=== PATIENT | female | born 1945 | race Two or more races ===

== ENCOUNTER 2022-12-17 18:28 | Inpatient (IN) | payer OTHER ==
[~2022-12-17] VITALS: Ht 167.6 cm; Wt 57.7 kg
[2022-12-17 22:41] VITALS: BP 145/70
[2022-12-17] MEDS ORDERED: OMEP-263 (22:59)
[2022-12-17] MEDS ORDERED: LISI-275 PO (22:59)
[2022-12-17] MEDS ORDERED: TRAM50TA2 PO (22:59)
[2022-12-17] MEDS ORDERED: BUSP10TA31 PO (22:59)
[2022-12-17] MEDS ORDERED: ALBU108A5 INH (22:59)
[2022-12-17] MEDS ORDERED: ALEN70TA74 PO (22:59)
[2022-12-17] MEDS ORDERED: ALBU0.084 NEB (22:59)
[2022-12-17] MEDS ORDERED: FURO40TA4 PO (22:59)
[2022-12-17] MEDS ORDERED: MORPHINE SULFATE INJ 2 MG/ml SYRG IV PRN (23:45)
[2022-12-17] MEDS ORDERED: NITROGLYCERIN 0.4 MG SL TAB SL PRN (23:45)
[2022-12-17] MEDS ORDERED: ONDANSETRON HCL 4 MG/2 ML VIAL IV PRN (23:45)
[2022-12-17] MEDS ORDERED: ACETAMINOPHEN 325 MG TAB PO PRN (23:45)
[2022-12-18] MEDS ORDERED: IPRATROPIUM BROM 0.5 MG/2.5ML INH SOL NEB SCH (02:00)
[2022-12-18] MEDS: IPRATROPIUM BROM 0.5 MG/2.5ML INH SOL NEB SCH ×6 (02:01→22:06)
[2022-12-18] MEDS: ALBUTEROL SULF 2.5 MG/0.5ML(0.5%) NEB SOLN NEB SCH ×6 (02:01→22:06)
[2022-12-18 05:00] VITALS: BP 146/67
[2022-12-18] MEDS: FUROSEMIDE 20 MG/2 ML VIAL IV SCH ×2 (06:29→18:03)
[2022-12-18 08:15] LABS: Basophils # (auto) 0.1 10 ^3/uL (0-0.2); Basophils % (auto) 1.7 % (0.0-2.0); Eosinophils # (auto) 0 10 ^3/uL (0-0.8); Eosinophils % (auto) 0.1 % (0.0-7.0); Hematocrit 41.9 % (36.0-46.0); Hemoglobin 13.8 g/dL (12.2-16.2); Lymphocytes # (auto) 0.9 10 ^3/uL (0.4-5.4); Lymphocytes % (auto) 24.9 % (10.0-50.0); Mean Corpuscular Hgb Conc. 32.8 g/dL (32.0-36.0); Mean Corpuscular Volume 94.4 fL (80.0-100.0); Monocytes # (auto) 0.6 10 ^3/uL (0-1.3); Monocytes % (auto) 16.1 % (0.0-12.0); Neutrophils # (auto) 2.2 10 ^3/uL (1.6-8.6); Neutrophils % (auto) 57.2 % (37.0-80.0); Nucleated Red Blood Cells % 1.1 %; Red Blood Cells 4.44 10^6/uL (4.0-5.20); White Blood Cell 3.8 10^3/uL (4.4-10.8)
[2022-12-18 08:29] LABS: Red Cell Distribution Width 21.5 % (11.8-14.3)
[2022-12-18 08:50] LABS: Calcium 8.5 mg/dL (8.5-10.1); Potassium 4.6 mmol/L (3.5-5.1)
[2022-12-18 09:05] VITALS: BP 129/61
[2022-12-18] MEDS: ENOXAPARIN SOD 40 MG/0.4 ML SYRINGE SC SCH (09:19)
[2022-12-18] MEDS: PANTOPRAZOLE 40 MG/10 ML VIAL INJ IV SCH (09:19)
[2022-12-18] MEDS ORDERED: methylPREDNISolone SOD SUCC 40 MG/ML VL IV SCH (10:00)
[2022-12-18 12:35] VITALS: BP 141/58
[2022-12-18 12:55] VITALS: BP 141/58
[2022-12-18] MEDS: methylPREDNISolone SOD SUCC 40 MG/ML VL IV SCH ×2 (14:00→21:17)
[2022-12-18] MEDS ORDERED: traMADol HCL 50 MG TAB PO PRN (16:30)
[2022-12-18 17:00] VITALS: BP 147/67
[2022-12-18] MEDS: busPIRone HCL 10 MG TAB PO SCH (21:17)
[2022-12-18 22:00] VITALS: BP 143/68
[2022-12-19] MEDS: ALBUTEROL SULF 2.5 MG/0.5ML(0.5%) NEB SOLN NEB SCH ×6 (02:00→22:37)
[2022-12-19] MEDS: IPRATROPIUM BROM 0.5 MG/2.5ML INH SOL NEB SCH ×6 (02:00→22:37)
[2022-12-19 05:00] VITALS: BP 140/60
[2022-12-19 05:52] LABS: BUN/Creatinine Ratio 27.4 (10.0-20.0); Basophils # (auto) 0.1 10 ^3/uL (0-0.2); Basophils % (auto) 1.3 % (0.0-2.0); Calcium 8.6 mg/dL (8.5-10.1); Eosinophils # (auto) 0 10 ^3/uL (0-0.8); Hematocrit 40.1 % (36.0-46.0); Hemoglobin 13.2 g/dL (12.2-16.2); Lymphocytes # (auto) 0.7 10 ^3/uL (0.4-5.4); Lymphocytes % (auto) 17.3 % (10.0-50.0); Mean Corpuscular Hemoglobin 31.1 pg (28.0-32.0); Mean Corpuscular Volume 94.4 fL (80.0-100.0); Monocytes # (auto) 0.6 10 ^3/uL (0-1.3); Monocytes % (auto) 14.7 % (0.0-12.0); Neutrophils # (auto) 2.6 10 ^3/uL (1.6-8.6); Neutrophils % (auto) 66.7 % (37.0-80.0); Potassium 4.3 mmol/L (3.5-5.1); Red Blood Cells 4.25 10^6/uL (4.0-5.20)
[2022-12-19] MEDS: methylPREDNISolone SOD SUCC 40 MG/ML VL IV SCH ×3 (06:09→21:50)
[2022-12-19] MEDS: FUROSEMIDE 20 MG/2 ML VIAL IV SCH ×2 (06:09→18:06)
[2022-12-19] MEDS: busPIRone HCL 10 MG TAB PO SCH ×3 (06:09→21:50)
[2022-12-19 09:00] VITALS: BP 157/69
[2022-12-19] MEDS: ENOXAPARIN SOD 40 MG/0.4 ML SYRINGE SC SCH (09:15)
[2022-12-19] MEDS: PANTOPRAZOLE 40 MG/10 ML VIAL INJ IV SCH (09:15)
[2022-12-19] MEDS ORDERED: LISINOPRIL 5 MG TAB PO SCH (10:00)
[2022-12-19] MEDS ORDERED: hydrALAZINE HCL 20 MG/ML VL IV PRN (12:15)
[2022-12-19 13:00] VITALS: BP 145/71
[2022-12-19 13:39] LABS: Urine Bacteria NONE SEEN /hpf (None Seen); Urine Blood 1+ /uL (Negative); Urine Mucus FEW (None Seen); Urine Specific Gravity 1.015 (1.001-1.035); Urine WBC 1 /hpf (0 - 5)
[2022-12-19 13:54] LABS: Alcohol, Urine < 3.0 mg/dL (0-10); Amphetamine Screen, Urine POSITIVE (NEGATIVE); Barbiturate Scree,Urine NEGATIVE (NEGATIVE); Benzodiazephine Screen, Urine NEGATIVE (NEGATIVE); Cannabinoid Screen, Urine POSITIVE (NEGATIVE); Cocaine Screen, Urine NEGATIVE (NEGATIVE); Opiate Scree,Urine NEGATIVE (NEGATIVE)
[2022-12-19 14:03] LABS: Phencyclidine Screen, Urine NEGATIVE (NEGATIVE)
[2022-12-19] MEDS ORDERED: METH4PAK PO (15:22)
[2022-12-19 17:00] VITALS: BP 134/53
[2022-12-19] MEDS: METOPROLOL TARTRATE 25 MG TAB PO SCH (21:50)
[2022-12-20] MEDS: ALBUTEROL SULF 2.5 MG/0.5ML(0.5%) NEB SOLN NEB SCH ×4 (02:00→15:21)
[2022-12-20] MEDS: IPRATROPIUM BROM 0.5 MG/2.5ML INH SOL NEB SCH ×4 (02:00→15:21)
[2022-12-20 04:52] VITALS: BP 145/64
[2022-12-20] MEDS: methylPREDNISolone SOD SUCC 40 MG/ML VL IV SCH ×2 (06:27→14:35)
[2022-12-20] MEDS: FUROSEMIDE 20 MG/2 ML VIAL IV SCH (06:27)
[2022-12-20] MEDS: busPIRone HCL 10 MG TAB PO SCH ×2 (06:28→14:35)
[2022-12-20 06:46] LABS: Basophils # (auto) 0 10 ^3/uL (0-0.2); Basophils % (auto) 0.8 % (0.0-2.0); Eosinophils # (auto) 0 10 ^3/uL (0-0.8); Hematocrit 41.1 % (36.0-46.0); Hemoglobin 13.6 g/dL (12.2-16.2); Lymphocytes # (auto) 0.7 10 ^3/uL (0.4-5.4); Lymphocytes % (auto) 15.5 % (10.0-50.0); Mean Corpuscular Hemoglobin 31.2 pg (28.0-32.0); Mean Corpuscular Hgb Conc. 33.1 g/dL (32.0-36.0); Mean Corpuscular Volume 94.1 fL (80.0-100.0); Monocytes # (auto) 0.6 10 ^3/uL (0-1.3); Monocytes % (auto) 13.7 % (0.0-12.0); Nucleated Red Blood Cells % 0.9 %; Red Blood Cells 4.37 10^6/uL (4.0-5.20); White Blood Cell 4.2 10^3/uL (4.4-10.8)
[2022-12-20 07:22] LABS: Potassium 4.1 mmol/L (3.5-5.1)
[2022-12-20 07:28] LABS: BUN/Creatinine Ratio 38.2 (10.0-20.0); Calcium 8.5 mg/dL (8.5-10.1)
[2022-12-20 09:00] VITALS: BP 149/71
[2022-12-20] MEDS: PANTOPRAZOLE 40 MG/10 ML VIAL INJ IV SCH (09:46)
[2022-12-20] MEDS: ENOXAPARIN SOD 40 MG/0.4 ML SYRINGE SC SCH (09:47)
[2022-12-20] MEDS: METOPROLOL TARTRATE 25 MG TAB PO SCH (09:47)
[2022-12-20 14:06] VITALS: BP 149/71
== END 2022-12-20 15:45 | disposition home health service (06) | DRG 291 ==
LOC: TELE-EAST 22:22
PROVIDERS: ADMIT Internal Medicine; ATTEND Internal Medicine
DX: I11.0 Hypertensive heart disease with heart failure (principal); I50.33 Acute on chronic diastolic (congestive) heart failure; J96.21 Acute and chronic respiratory failure with hypoxia; J96.22 Acute and chronic respiratory failure with hypercapnia; J44.1 Chronic obstructive pulmonary disease with (acute) exacerbation; K21.9 Gastro-esophageal reflux disease without esophagitis; M81.0 Age-related osteoporosis without current pathological fracture; I27.20 Pulmonary hypertension, unspecified; Z20.822 Contact with and (suspected) exposure to COVID-19; R91.1 Solitary pulmonary nodule; Z82.49 Family history of ischemic heart disease and other diseases of the circulatory system; Z91.199 Patient's noncompliance with other medical treatment and regimen due to unspecified reason; Z87.891 Personal history of nicotine dependence; Z90.710 Acquired absence of both cervix and uterus
CPT/HCPCS: 36415; 36600; 71045; 80048; 80307; 81001; 82805; 83880; 85025; 85379; 93306; 93970; 94640; 97163; C9113; G0378